=== PATIENT | female | born 1935 | race Caucasian/White ===

== ENCOUNTER 2016-11-29 15:40 | Emergency (ER) | payer MEDICARE, OTHER ==
[~2016-11-29] VITALS: Ht 160 cm; Wt 62.1 kg
[~2016-11-29 15:40] MED LIST: ASPI-231 PO; BENA5TAB3 OR; CHOL10006 PO; CLOP75TA28 PO; EZET10TA2 PO; IBU800T PO; LORA-655 PO; MAGN400C2 PO
[2016-11-29 16:22] LABS: Basophils # (auto) 0 uL; Basophils % (auto) 0.3 % (0.0-2.0); Eosinophils # (auto) 0.1 uL; Eosinophils % (auto) 0.8 % (0.0-7.0); Hemoglobin 14.1 g/dL (12.2-16.2); Lymphocytes # (auto) 2.1 uL; Lymphocytes % (auto) 32.6 % (10.0-50.0); Mean Corpuscular Hemoglobin 30.9 pg (28.0-32.0); Mean Corpuscular Hgb Conc. 34.4 g/dL (32.0-36.0); Mean Corpuscular Volume 89.9 fL (80.0-100.0); Mean Platelet Volume 7.4 fL (7.4-10.4); Monocytes # (auto) 0.7 uL; Monocytes % (auto) 10.2 % (0.0-12.0); Neutrophils # (auto) 3.6 uL; Neutrophils % (auto) 56.1 % (37.0-80.0); Platelet Count (auto) 365 10^3/uL (140-450); Red Cell Distribution Width 14.9 % (11.6-16.0); White Blood Cell 6.5 10^3/uL (4.4-10.8)
[2016-11-29 16:49] LABS: Albumin 3.5 g/dL (3.4-5.0); Alkaline Phosphatase 83 U/L (45-117); Anion Gap 10 (5-15); Aspartate Aminotransferase 22 U/L (15-37); BUN/Creatinine Ratio 20.4; Bilirubin, Total 0.5 mg/dL (0.2-1.0); Blood Urea Nitrogen 20 mg/dL (7-18); Calcium 8.7 mg/dL (8.5-10.1); Carbon Dioxide 26 mmol/L (21-32); Chloride 108 mmol/L (98-107); GFR African American 70 mL/min; GFR Non-African American 58 mL/min; Glucose 137 mg/dL (74-106); Magnesium 2.5 mg/dL (1.6-2.6); Potassium 3.9 mmol/L (3.5-5.1); Sodium 144 mmol/L (136-145); Total Protein 6.8 g/dL (6.4-8.2)
[2016-11-29 18:57] VITALS: BP 140/67
== END 2016-11-29 18:56 | disposition home or self-care (01) ==
LOC: ER 15:44 → EDUNIT# 15:44 → ER 18:56
DX: F41.9 Anxiety disorder, unspecified (principal); R00.2 Palpitations; E78.5 Hyperlipidemia, unspecified; I10 Essential (primary) hypertension; Z88.8 Allergy status to other drugs, medicaments and biological substances; Z88.6 Allergy status to analgesic agent; Z90.49 Acquired absence of other specified parts of digestive tract; Z90.710 Acquired absence of both cervix and uterus; Z98.61 Coronary angioplasty status
CPT/HCPCS: 36415; 71020; 80053; 83735; 84484; 85025; 93005

== ENCOUNTER → 2017-02-15 | Outpatient (CLI) | payer MEDICARE, OTHER ==
[~2017-02-15] MED LIST changes: -BENA5TAB3 OR; +BENA5TAB5 OR
[2017-02-15 12:24] LABS: Basophils # (auto) 0 uL; Basophils % (auto) 0.7 % (0.0-2.0); CONDITION Y; Eosinophils # (auto) 0.1 uL; Eosinophils % (auto) 0.9 % (0.0-7.0); Hematocrit 42.8 % (36.0-46.0); Hemoglobin 14.5 g/dL (12.2-16.2); Lymphocytes # (auto) 1.6 uL; Lymphocytes % (auto) 29.8 % (10.0-50.0); Mean Corpuscular Hemoglobin 31.6 pg (28.0-32.0); Mean Corpuscular Hgb Conc. 33.9 g/dL (32.0-36.0); Mean Corpuscular Volume 93.1 fL (80.0-100.0); Mean Platelet Volume 7.9 fL (7.4-10.4); Monocytes # (auto) 0.6 uL; Monocytes % (auto) 10.2 % (0.0-12.0); Neutrophils # (auto) 3.2 uL; Neutrophils % (auto) 58.4 % (37.0-80.0); Platelet Count (auto) 346 10^3/uL (140-450); Red Cell Distribution Width 14.3 % (11.6-16.0); White Blood Cell 5.5 10^3/uL (4.4-10.8)
[2017-02-15 12:59] LABS: BUN/Creatinine Ratio 23.8; Calcium 8.8 mg/dL (8.5-10.1); Magnesium 2.5 mg/dL (1.6-2.6); Potassium 4.1 mmol/L (3.5-5.1)
[2017-02-15 13:05] LABS: Temperature: 22.5 C (20.0-25.0)
== END | disposition home or self-care (01) ==
LOC: LAB 10:45
PROVIDERS: ATTEND Internal Medicine Cardiovascular Disease
DX: I10 Essential (primary) hypertension (principal); E03.9 Hypothyroidism, unspecified; D51.9 Vitamin B12 deficiency anemia, unspecified; E83.42 Hypomagnesemia
CPT/HCPCS: 36415; 80048; 82607; 82746; 83735; 84436; 84443; 85025

== ENCOUNTER 2020-06-28 07:09 | Day surgery (SDC) | payer MEDICARE, OTHER ==
[~2020-06-28] VITALS: Ht 162.6 cm; Wt 59.0 kg
[~2020-06-28 07:09] MED LIST changes: -BENA5TAB5 OR; -CLOP75TA28 PO; -EZET10TA2 PO; -IBU800T PO; +LOSA-69 PO
[2020-06-28] MEDS ORDERED: IOHEXOL 350 MG/ML 100ML IJ ONE (07:34)
[2020-06-28] MEDS ORDERED: LIDOCAINE 2%HCL (LOCAL ANESTH.) INJ 20ML MDV ONE (07:34)
[2020-06-28] MEDS ORDERED: HEPARIN SODIUM (PORCINE) 5000 UNITS/ML 1ML VIAL ONE (07:50)
[2020-06-28] MEDS ORDERED: ANGIOMAX 250 MG VIAL IV ONE (07:50)
[2020-06-28] MEDS ORDERED: VERAPAMIL 2.5MG/ML INJ 2ML VIAL IV ONE (07:50)
[2020-06-28] MEDS ORDERED: fentaNYL CITRATE 100 MCG/2 ML VL ONE (07:50)
[2020-06-28] MEDS ORDERED: SODIUM CHL 0.9% 0 ML ONE (07:51)
[2020-06-28] MEDS ORDERED: MIDAZOLAM HCL 1MG/1ML-2 ML VIAL ONE (07:51)
[2020-06-28] MEDS ORDERED: methylPREDNISolone SOD SUCC 125 MG/2 ML VL ONE (08:01)
[2020-06-28] MEDS ORDERED: diphenhdrAMINE HCL 50 MG/1 ML VL ONE (08:01)
[2020-06-28] MEDS ORDERED: FAMOTIDINE (10MG/ML) 2ML VL IV ONE (08:01)
== END 2020-06-28 13:05 | disposition home or self-care (01) ==
LOC: CATH 07:09
PROVIDERS: ATTEND Internal Medicine Cardiovascular Disease
DX: R07.89 Other chest pain (principal); I25.10 Atherosclerotic heart disease of native coronary artery without angina pectoris; E78.5 Hyperlipidemia, unspecified; I73.9 Peripheral vascular disease, unspecified; J98.4 Other disorders of lung; J44.9 Chronic obstructive pulmonary disease, unspecified; B15.9 Hepatitis A without hepatic coma; Z20.828 Contact with and (suspected) exposure to other viral communicable diseases; Z98.890 Other specified postprocedural states; Z79.899 Other long term (current) drug therapy; Z86.73 Personal history of transient ischemic attack (TIA), and cerebral infarction without residual deficits; Z95.5 Presence of coronary angioplasty implant and graft; Z88.8 Allergy status to other drugs, medicaments and biological substances; Z88.5 Allergy status to narcotic agent; Z91.041 Radiographic dye allergy status; Z90.710 Acquired absence of both cervix and uterus
CPT/HCPCS: 93454; C1760; C1769; C1894; J1200; J1644; J2250; J2930; J3010; J3490; Q9967; U0003; 99152; 99153